=== PATIENT | female | born 1960 | race Caucasian/White ===

== ENCOUNTER 2019-12-12 14:34 | Outpatient (CLI) | payer BC, SELFPAY ==
--- NOTE | 2019-12-12 15:00 | USCV_ITS ---
Johanna Rosas Age: 59 Gender: F : 1960 Exam Date: 12/12/2019 15:02 Ordering Phys: Cassy Calderon MD ([email or web address]) Technologist: Casandra Schaeffer Exam Location: [facility] [place] Indication: Systolic murmur BP: / HR: 74 Rhythm: Sinus Technical Quality: Adequate MEASUREMENTS (Male / Female) Normal Values 2D ECHO LV Diastolic Diameter PLAX 4.2 cm 4.2 - 5.9 / 3.9 - 5.3 cm LV Systolic Diameter PLAX 2.5 cm IVS Diastolic Thickness 1.2 cm 0.6 - 1.0 / 0.6 - 0.9 cm IVS Systolic Thickness 1.5 cm LVPW Diastolic Thickness 1.2 cm 0.6 - 1.0 / 0.6 - 0.9 cm LVPW Systolic Thickness 1.7 cm LV Ejection Fraction 2D Teich 71.9 % LV Ejection Fraction MOD 2C 71.5 % LV Ejection Fraction 2C AL 72.0 % LA Diameter 2.7 cm LA Width 2.9 cm LA Height 5.1 cm RA Width 2.9 cm RA Height 4.7 cm M-MODE LV Diastolic Diameter MM 5.0 cm 4.2 - 5.9 / 3.9 - 5.3 cm LV Systolic Diameter MM 2.9 cm LV Ejection Fraction MM Teich 72.4 % IVS Diastolic Thickness MM 1.1 cm 0.6 - 1.0 / 0.6 - 0.9 cm IVS Systolic Thickness MM 1.3 cm LVPW Diastolic Thickness MM 1.0 cm 0.6 - 1.0 / 0.6 - 0.9 cm LVPW Systolic Thickness MM 1.6 cm Aortic Annulus Diameter 3.2 cm LA Ao Ratio MM 0.8 MV E Point Septal Separation 0.5 cm DOPPLER AV Peak Velocity 251.0 cm/s LVOT Peak Velocity 93.0 cm/s MV Peak Velocity 106.0 cm/s MV Area PHT 3.5 cm squared Mitral E to A Ratio 0.9 MV E' Velocity 7.0 cm/s Mitral E to MV E' Ratio 14.0 Mitral E to LV E' Lateral Ratio 13.8 Mitral E to LV E' Septal Ratio 14.2 TR Peak Velocity 197.0 cm/s TR Peak Gradient 15.5 mmHg Right Atrial Pressure 3.0 mmHg Pulmonary Artery Systolic Pressu 18.5 mmHg PV Peak Velocity 119.0 cm/s RV Acceleration Time 0.1 s FINDINGS Left Ventricle Normal left ventricular size and systolic function. Increased left ventricular wall thickness. Normal left ventricular systolic function. Left ventricular ejection fraction is estimated at 65 %. No regional wall motion abnormalities. Normal diastolic function. Right Ventricle Normal right ventricular size and systolic function. Right ventricular systolic pressure 18.5 mmHg. Right Atrium Normal right atrial size. Left Atrium Normal left atrial size. Mitral Valve Structurally normal mitral valve. No mitral valve stenosis. Mild mitral valve regurgitation. Aortic Valve Bicuspid aortic valve (fusion of left coronary cusp and non coronary cusp). Mild aortic valve stenosis, peak velcity of 2.5 m/sec and mean gradient 13 mmHg. Tricuspid Valve Structurally normal tricuspid valve. No tricuspid valve stenosis. Mild tricuspid valve regurgitation. Pulmonic Valve Pulmonic valve not well visualized. Trace pulmonary valve regurgitation. Pericardium No pericardial effusion. Aorta Normal size aortic root and proximal ascending aorta. CONCLUSIONS 1. Normal left ventricular size and systolic function. Mild concentric left ventricular hypertrophy. Left ventricular ejection fraction is estimated at 65 %. No regional wall motion abnormalities. Normal diastolic function. 2. Normal right ventricular size and systolic function. 3. Bicuspid aortic valve (fusion of left coronary cusp and non coronary cusp). Mild aortic valve stenosis, peak velcity of 2.5 m/sec and mean gradient 13 mmHg. 4. Mild mitral and tricuspid valve regurgitation. 5. No prior similar studies to compare. Cassy Calderon MD (Electronically Signed) Final Date: 13 December 2019 15:00 S
== END 2019-12-12 14:35 | disposition home or self-care (01) ==
LOC: RAD 14:38
PROVIDERS: PCP Family Medicine; Visit Provider Internal Medicine Cardiovascular Disease
DX: R01.1 Cardiac murmur, unspecified (principal); Q23.1 Congenital insufficiency of aortic valve; I34.0 Nonrheumatic mitral (valve) insufficiency; I07.1 Rheumatic tricuspid insufficiency
CPT/HCPCS: 93306

== ENCOUNTER 2020-02-20 14:23 | Outpatient (CLI) | payer BC, SELFPAY ==
--- NOTE | 2020-02-20 14:53 | CT_ITS ---
WS: [id number] CTA THORACIC AORTA WITH AND WITHOUT CONTRAST. HISTORY: For evaluation of aorta for aneurysm and coarctation TECHNIQUE: CT imaging of the thorax is performed with and without contrast. After noncontrast imaging is performed, CT angiogram is performed during injection of Omnipaque 300; 95 mL IV.. Sagittal and c oronal reconstructions, sagittal and coronal MIP imaging is submitted. All CT scans at [facility] use at least one of these dose optimization techniques: automated exposure control; mA and/o r kV adjustment per patient size (includes targeted exams where dose is matched to clinical indicatio n); or iterative reconstruction. DLP: 1353.79 mGycm COMPARISON: None available. Normal size ascending thoracic aorta. Maximum diameter 4.1 cm. Through the arch the aorta is normal c aliber. RIGHT common and LEFT common carotid arteries arise from a common base at the aortic arch. Th e RIGHT subclavian artery is aberrantly positioned. RIGHT subclavian passes posterior to the esophag us and communicates with the descending aorta, distal to the subclavian artery on the LEFT. Normal ca liber aorta. Normal sized pulmonary arteries. Heart size is normal. No pericardial or pleural effusion. No adenopa thy. Cholelithiasis without acute cholecystitis. Small hiatal hernia. Slight increase in thoracic kyphosis. No osteoblastic or osteolytic bone disease. 4 mm LEFT thyroid nodule. CT/CT angio chest [id number] IMPRESSION: 1. No aneurysm of the ascending aorta or coarctation. 2. Aberrant RIGHT subclavian artery. 3. No adenopathy or mass. 4. Cholelithiasis and small hiatal hernia.
[2020-02-20 15:22] LABS: Blood Urea Nitrogen 8 mg/dL (8-23); Glomerular Filtration Rate 56.6 mL/min (90-130)
[2020-02-20] MEDS: iohexol 350 mg/mL 100 mL Btl IV (15:35)
== END 2020-02-20 14:24 | disposition home or self-care (01) ==
PROVIDERS: Family Provider Family Medicine; PCP Family Medicine; Visit Provider Internal Medicine Cardiovascular Disease
DX: Q23.1 Congenital insufficiency of aortic valve (principal); K80.20 Calculus of gallbladder without cholecystitis without obstruction; K44.9 Diaphragmatic hernia without obstruction or gangrene
CPT/HCPCS: 71275; 82565; 84520; Q9967

== ENCOUNTER → 2020-07-23 15:45 | Outpatient (BNVA) | payer BC, SELFPAY | PROVIDERS: Family Provider Family Medicine; PCP Family Medicine; Visit Provider Internal Medicine Cardiovascular Disease | DX: R00.2 Palpitations (principal); R01.1 Cardiac murmur, unspecified; I35.0 Nonrheumatic aortic (valve) stenosis; I47.1 Supraventricular tachycardia | CPT/HCPCS: 80053; 80061; 84443; 85025 ==

== ENCOUNTER → 2022-05-15 14:17 | Outpatient (BNVA) | payer BC, SELFPAY | PROVIDERS: Family Provider Family Medicine; PCP Family Medicine; Visit Provider Nurse Practitioner Family | DX: R42 Dizziness and giddiness (principal); H81.10 Benign paroxysmal vertigo, unspecified ear; R11.0 Nausea | CPT/HCPCS: 82962 ==

== ENCOUNTER 2022-06-02 13:45 | Outpatient (RCR) | payer BC, SELFPAY | END 2022-06-12 23:59 | disposition home or self-care (01) | LOC: SPT 13:45 | PROVIDERS: Family Provider Family Medicine; PCP Family Medicine; Visit Provider Nurse Practitioner Family | DX: R11.0 Nausea (principal); H81.10 Benign paroxysmal vertigo, unspecified ear | CPT/HCPCS: 95992; 97162 ==

== ENCOUNTER → 2022-07-21 14:59 | Outpatient (BNVA) | payer BC, SELFPAY | PROVIDERS: Family Provider Family Medicine; PCP Family Medicine; Visit Provider Nurse Practitioner Family | DX: R30.0 Dysuria (principal) | CPT/HCPCS: 81000 ==